=== PATIENT | female | born 1960 | race Caucasian/White ===

== ENCOUNTER 2018-05-16 16:41 | Emergency (ER) | payer MEDICAID, OTHER ==
[2018-05-16 16:55] VITALS: BP 130/77; PULSE 77; RESP 18; TEMP 97.7; O2SAT 98
--- NOTE | 2018-05-16 17:23 | C.PDOC ---
History Of Present Illness Pt c/o right thumb pain. Denies trauma. Time Seen by Provider: 05/16/18 17:05 Chief Complaint (Nursing): Finger,Hand,&Wrist History Per: Patient Onset/Duration Of Symptoms: Days (about 3 weeks) Current Symptoms Are (Timing): Still Present Quality: "Pain" Severity: Moderate Exacerbating Factor(s): Strenuous Use Of Affected Area Additional History Per: Prior Records Past Medical History Reviewed: Historical Data, Nursing Documentation, Vital Signs Vital Signs: Last Vital Signs Temp 97.7 F 05/16/18 16:53 Pulse 77 05/16/18 16:53 Resp 18 05/16/18 16:53 BP 130/77 05/16/18 16:53 Pulse Ox 98 05/16/18 16:53 - Medical History PMH: Diabetes, Hypercholesterolemia Family History: States: Unknown Family Hx - Social History Hx Tobacco Use: No Hx Alcohol Use: No Hx Substance Use: No - Immunization History Hx Tetanus Toxoid Vaccination: Yes Hx Influenza Vaccination: Yes Hx Pneumococcal Vaccination: Yes Review Of Systems Except As Marked, All Systems Reviewed And Found Negative. Constitutional: Negative for: Fever, Weakness Cardiovascular: Negative for: Chest Pain Respiratory: Negative for: Shortness of Breath Gastrointestinal: Negative for: Vomiting, Abdominal Pain Musculoskeletal: Positive for: Hand Pain. Negative for: Neck Pain Skin: Negative for: Rash Neurological: Negative for: Weakness, Numbness Physical Exam - Physical Exam Appears: Non-toxic, No Acute Distress Skin: Normal Color, Warm, Dry, No Rash Head: Atraumatic, Normacephalic Eye(s): bilateral: Normal Inspection, PERRL, EOMI Neck: Normal ROM, Supple Extremity: Normal ROM, Capillary Refill (wnl), No Deformity, No Swelling, Other (Pt has right trigger thumb) ED Course And Treatment O2 Sat by Pulse Oximetry: 98 Pulse Ox Interpretation: Normal Disposition Counseled Patient/Family Regarding: Diagnosis, Need For Followup, Rx Given - Disposition Referrals: Todd Reinoso MD [Staff Provider] - Disposition: HOME/ ROUTINE Disposition Time: 17:24 Condition: STABLE Additional Instructions: Rest your right thumb. Follow up with a Hand specialist for further evaluation and treatment. Return to the ER if you develop worsening of symptoms or if you have any other concerns. Prescriptions: Naproxen 375 mg PO BID PRN #20 tablet PRN Reason: Pain, Moderate (4-7) Instructions: Trigger Finger (DC) - Clinical Impression Clinical Impression: Trigger thumb of right hand
== END 2018-05-16 17:35 | disposition home or self-care (01) ==
LOC: C.ER 16:41
DX: M65.311 Trigger thumb, right thumb (principal)

== ENCOUNTER 2018-09-16 16:16 | Emergency (ER) | payer MEDICAID ==
[2018-09-16 16:23] VITALS: BP 170/89; PULSE 86; RESP 19; TEMP 98.4; O2SAT 100
[2018-09-16] MEDS ORDERED: Lidocaine 5% Patch TD STA (17:04)
[2018-09-16] MEDS ORDERED: Lidocaine 5% Patch TD ONE (17:11)
--- NOTE | 2018-09-16 17:28 | C.PDOC ---
History Of Present Illness 58 y/o female with iddm c/o pain to left lower back that radiates down left lateral leg, started yesterday. worse with sitting. pt sts she was seen by chiropractor today who diagnosed her with sciatica and told her to take ibuprofen. pt took 4 tabs otc ibuprofen 2 hrs [employer] in [employer] and reports no decrease in pain. no bladder or bowel dysfunction, no saddle anesthesia, no weakness to extremities, no numbness or tingling. Time Seen by Provider: 09/16/18 16:46 Chief Complaint (Nursing): Back Pain History Per: Patient Onset/Duration Of Symptoms: Days (2) Current Symptoms Are (Timing): Still Present Quality Of Discomfort: "Pain" Severity: Moderate Associated Symptoms: denies: Incontinence, New Weakness, New Numbness Exacerbating Factor(s): Sitting Past Medical History Reviewed: Historical Data, Nursing Documentation, Vital Signs Vital Signs: Last Vital Signs Temp 98.4 F 09/16/18 16:21 Pulse 86 09/16/18 16:21 Resp 19 09/16/18 16:21 BP 170/89 H 09/16/18 16:21 Pulse Ox 100 09/16/18 16:21 - Medical History PMH: Diabetes, HTN, Hypercholesterolemia Family History: States: Unknown Family Hx - Social History Hx Tobacco Use: No Hx Alcohol Use: No Hx Substance Use: No - Immunization History Hx Tetanus Toxoid Vaccination: No Hx Influenza Vaccination: No Hx Pneumococcal Vaccination: Yes Review Of Systems Constitutional: Negative for: Fever, Chills Cardiovascular: Negative for: Chest Pain Gastrointestinal: Negative for: Abdominal Pain, Diarrhea Genitourinary: Negative for: Dysuria, Frequency, Incontinence Musculoskeletal: Positive for: Back Pain, Leg Pain Skin: Negative for: Rash, Lesions Neurological: Negative for: Weakness, Numbness Physical Exam - Physical Exam Appears: Non-toxic, No Acute Distress Skin: Warm, Dry Head: Atraumatic, Normacephalic Gastrointestinal/Abdominal: Bowel Sounds, Soft, No Tenderness Back: No Vertebral Tenderness, Paraspinal Tenderness (left lumbar and sciatic notch) Extremity: Normal ROM, Capillary Refill (less than 2 seconds), No Swelling Pulses: Left Dorsalis Pedis: Normal, Right Dorsalis Pedis: Normal Neurological/Psych: Oriented x3, Normal Speech, Normal Cognition, Normal Motor, Normal Sensation ED Course And Treatment O2 Sat by Pulse Oximetry: 100 Medical Decision Making Medical Decision Making: pt with sciatica, diagnosed by chiropractor with pain in spite of 800 ibuprofen, agree with diagnosis after history and physical exam. pt given Tylenol, d/c with muscle relaxant. and f/u pmd for physical therapy. Disposition Counseled Patient/Family Regarding: Diagnosis, Need For Followup, Rx Given - Disposition Referrals: Namrata Kendall APN [Advanced Practice Nurse] - Disposition: HOME/ ROUTINE Disposition Time: 17:30 Condition: IMPROVED Additional Instructions: Please take patch off left lower back in 12 hours. Continue taking 800 mg Advil (4 tablets, with food) every 8 hours. Take 650 mg Tylenol every 4-6 hours as well, alternate with advil. Take muscle relaxant every 8 hours if at home, or just at bedtime if working or drinig inthe daytime sinceit makes you sleepy. Follow up wit Dr Kendall or Dr Saldana on Wednesday; physical therapy recommended. Cold or warm compresses recommended; which ever feels better to you. . Prescriptions: Acetaminophen [Tylenol 325mg tab] 650 mg PO Q4 #50 tab Cyclobenzaprine [Cyclobenzaprine HCl] 10 mg PO Q8 #9 tab Instructions: Sciatica (DC), Sciatica Exercises Forms: [facility] (Yakut), General Discharge Instructions - Clinical Impression Clinical Impression: Sciatica
== END 2018-09-16 17:40 | disposition home or self-care (01) ==
LOC: C.ER 16:16
DX: M54.32 Sciatica, left side (principal)